=== PATIENT | female | born 1945 | race Caucasian/White ===

== ENCOUNTER 2019-05-29 03:12 | Observation (INO) ==
--- NOTE | 2019-05-29 03:33 | Emergency Department Note ---
Disposition Clinical Impression: Dyspnea Qualifiers: Dyspnea type: dyspnea on exertion Qualified Code(s): R06.09 - Other forms of dyspnea Arrhythmia Qualifiers: Arrhythmia type: other cardiac arrhythmia Qualified Code(s): I49.8 - Other specified cardiac arrhythmias Pulmonary edema Qualifiers: Chronicity: acute Qualified Code(s): J81.0 - Acute pulmonary edema Disposition: Admitted As Inpatient Condition: Fair Referrals: Ibrahima Bhatti MD [Primary Care Provider] - Forms: ED Satisfaction Letter Time of Disposition: 05:50 General Adult HPI - General Chief complaint: ED Shortness of Breath/Dyspnea Stated complaint: shortness of breath Time Seen by Provider: 05/29/19 03:26 Source: patient, family Limitations: no limitations Nursing Notes Reviewed: Yes Vital Signs Reviewed: Yes - History of Present Illness HPI Narrative: An 74-year-old female history of hypertension, hyperlipidemia, A. fib on warfarin who presents with palpitations. Palpitations started at 00 30 this morning when she rolled over in bed and felt her heart "flutter". Patient st ates that she recently had a couple steroid injections for arthritis of her knees and shoulder. Patient states that she has felt jittery, anxious, " worked up"recently and she is felt slightly short of breath with exertion. She states that she recently has been needing the bathroom more often and has been getting lightheaded. Today she has no chest pain, abdominal pain, . Pain Scale: 0 - Related Data Home Medications Medication Instructions Recorded Confirmed Atenolol [Tenormin] 25 mg PO BID 06/15/18 06/15/18 Calcium Carbonate/Vitamin D3 1 tab PO BID 06/15/18 06/15/18 [Calcium 600-Vit D3 800 Tablet] Levothyroxine Sodium 112 mcg PO DAILY 06/15/18 06/15/18 Lovastatin 40 mg PO HS 06/15/18 06/15/18 Omeprazole [PriLOSEC] 20 mg PO DAILY 06/15/18 06/15/18 Potassium Chloride 20 meq PO BID 06/15/18 06/15/18 Warfarin [Coumadin] 1.5 mg PO SUMOWETHFRSA 06/15/18 06/15/18 amLODIPine [Norvasc] 5 mg PO DAILY 06/15/18 06/15/18 Allergies Allergy/AdvReac Type Severity Reaction Status Date / Time indomethacin [From Indocin] AdvReac See Verified 05/29/19 03:18 Comments lisinopril AdvReac Cough Verified 05/29/19 03:18 All systems ED: reviewed and negative except as stated. Review of Systems: As Per HPI Constitutional: Denies: fever, chills, weakness, weight change Eyes: Denies: vision change Cardiovascular: Reports: palpitations, dyspnea on exertion. Denies: chest pain, orthopnea, edema, syncope Respiratory: Reports: dyspnea. Denies: cough, wheezes, hemoptysis Gastrointestinal: Denies: abdominal pain, nausea, vomiting, diarrhea, constipation Genitourinary: Reports: frequency. Denies: urgency, dysuria Musculoskeletal: Denies: back pain Neurological: Denies: headache, weakness Psychiatric: Denies: anxiety, depression Past Medical History - Past Medical History Attestation: Yes The following information was validated with the patient. Medical history: Reports: arthritis, atrial fibrillation, cancer, GERD, hyperlipidemia, hypertension, RA, thyroid disease, other Surgical history: Reports: breast surgery, cataract, hysterectomy, other Psychiatric history: Reports: depression - Social History Smoking Status: Never smoker Smokeless Tobacco Status: No Alcohol use: Reports: none Drug use: Reports: none Physical Exam - General Limitations: no limitations General appearance: alert - Head Head exam: atraumatic, normocephalic, normal inspection - Eye Eye exam: Present: normal appearance, PERRL, EOMI. Absent: scleral icterus, conjunctival injection - ENT ENT exam: normal exam, normal oropharynx, mucous membranes moist - Chest Chest inspection: Present: normal inspection, symmetric chest wall rise - Respiratory Respiratory exam: Present: normal lung sounds bilaterally. Absent: respiratory distress, wheezes, stridor - Cardiovascular Cardiovascular exam: Present: regular rate, irregular rhythm - Abdominal Exam Abdominal exam: Present: Non-Tender. Absent: tenderness, distention, guarding - Neurological Exam Neurological exam: Present: alert, oriented X3 - Psychiatric Psychiatric exam: Present: normal affect, normal mood Course Course Narrative: Patient presented with palpitations and dyspnea started early this morning. This found on EKG that she was in a supraventricular bigeminy pattern. Labs with cardiac workup were ordered. Patient has no chest pain. - Reevaluation(s) Reevaluation #1: Discussed the patient the findings and laboratory results as well as her EKG findings. Patient and her family agreed that hospital admission would be good for her. She agrees to admission. Patient is comfortable and only occasionally feels the palpitations. On repeat EKG EKG and found that she is no longer in a total supraventricular bigeminy but in and out. - Consultations Consultation #1: Spoke with Dr. Collier the hospitalist. Informed him of the patient. He requested we order a magnesium level on the patient as well as give him 40 mEq of potassium. I will do this. He agrees to admit the patient. Time: 05:29 Vital Signs Temperature 97.5 F L 05/29/19 03:14 Pulse Rate 70 05/29/19 03:14 Respiratory Rate 18 05/29/19 03:14 Blood Pressure 194/143 05/29/19 03:14 O2 Sat by Pulse Oximetry 99 05/29/19 03:14 Temperature 97.5 F L 05/29/19 03:14 Pulse Rate 62 05/29/19 05:07 Respiratory Rate 16 05/29/19 05:07 Blood Pressure 148/73 05/29/19 05:07 O2 Sat by Pulse Oximetry 98 05/29/19 05:07 Oxygen Delivery Oxygen Delivery Room Air Medical Decision Making - MDM Narrative Medical decision making narrative: Patient presented after an episode of palpitations while in bed. Patient has had a recent course of steroids and admits to being jittery. Patient admits to being dyspneic after the palpitations started. She continues to have palpitations. EKG showed a supraventricular bigeminal pattern. Labs are otherwise unremarkable. Chest x-ray did show possible early pulmonary edema versus poor inspiration. On reevaluation so this patient's symptoms are resolving however she was still having intermittent palpitations as well as verified an EKG was again which showed intermittent bigeminy is suppose earlier which was continuous bigeminal pattern. Patient will be admitted for observation and cardiac workup. - Medical Records Medical records reviewed: Yes I reviewed the patient's medical records. - Lab Data Lab results reviewed: Yes I reviewed the patient's lab results. Result diagrams: 05/29/19 03:38 05/29/19 03:38 Lab Results 05/29/19 05/29/19 05/29/19 Range/Units 03:38 03:38 03:38 WBC 10.8 (4.3-11.1) K/mcL RBC 3.82 (3.82-4.97) M/mcL Hgb 11.7 (11.5-15.4) g/dL Hct 38.2 (35.3-44.9) % MCV 100.0 (83.0-100.0) fL MCH 30.6 (28.0-33.3) pg MCHC 30.6 L (31.6-35.5) g/dL RDW 15.4 H (11.5-14.5) % Plt Count 344 (140-400) K/mcL MPV 9.4 (9.4-12.4) fL Immature Gran % 0.4 (0-4) % Seg Neutrophils % 52.0 % Lymphocytes % 40.9 % Monocytes % 6.1 % Eosinophils % 0.2 % Basophils % 0.4 % Neutrophils # 5.6 (1.6-8.9) K/mcL Lymphocytes # 4.4 (0.6-4.6) K/mcL Monocytes # 0.7 (0.0-1.3) K/mcL Eosinophils # 0.0 (0.0-0.6) K/mcL Basophils # 0.0 (0.0-0.2) K/mcL PT 39.8 H (9.4-12.1) Seconds INR 3.5 APTT 56.7 H (26.0-36.0) Seconds Sodium 140 (136-145) mEq/L Potassium 3.9 (3.5-5.1) mEq/L Chloride 105 (98-107) mEq/L Carbon Dioxide 26 (23-29) mEq/L BUN 24 H (8-23) mg/dL Creatinine 0.86 (0.60-1.20) mg/dL Est GFR ( Amer) > 60 (> 60) Est GFR (Non-Af Amer) > 60 (> 60) BUN/Creatinine Ratio 28 H (6-26) Glucose 115 H (70-105) mg/dL Calculated Osmolality 295 (280-300) Calcium 9.8 (8.6-10.3) mg/dL Troponin I < 0.03 (< 0.04) ng/mL Urine Color (Yellow) Urine Clarity (Clear) Urine pH (5.0-8.0) pH Units Ur Specific [place] (1.010-1.025) Urine Protein (Neg-Trace) mg/dL Urine Glucose (UA) (Normal) mg/dL Urine Ketones (Negative) mg/dL Urine Blood (Negative) Urine Nitrite (Negative) Urine Bilirubin (Negative) Urine Urobilinogen (Normal) mg/dL Ur Leukocyte Esterase (Negative) Urine Microscopic RBC (0-3) per hpf Urine Microscopic WBC (0-3) per hpf Ur Squamous Epith Cells (None-Few) per lpf Urine Bacteria (None-Few) per hpf Hyaline Casts (None-Few) per lpf Ur Culture Indicated? (NO) 05/29/19 Range/Units 04:27 WBC (4.3-11.1) K/mcL RBC (3.82-4.97) M/mcL Hgb (11.5-15.4) g/dL Hct (35.3-44.9) % MCV (83.0-100.0) fL MCH (28.0-33.3) pg MCHC (31.6-35.5) g/dL RDW (11.5-14.5) % Plt Count (140-400) K/mcL MPV (9.4-12.4) fL Immature Gran % (0-4) % Seg Neutrophils % % Lymphocytes % % Monocytes % % Eosinophils % % Basophils % % Neutrophils # (1.6-8.9) K/mcL Lymphocytes # (0.6-4.6) K/mcL Monocytes # (0.0-1.3) K/mcL Eosinophils # (0.0-0.6) K/mcL Basophils # (0.0-0.2) K/mcL PT (9.4-12.1) Seconds INR APTT (26.0-36.0) Seconds Sodium (136-145) mEq/L Potassium (3.5-5.1) mEq/L Chloride (98-107) mEq/L Carbon Dioxide (23-29) mEq/L BUN (8-23) mg/dL Creatinine (0.60-1.20) mg/dL Est GFR ( Amer) (> 60) Est GFR (Non-Af Amer) (> 60) BUN/Creatinine Ratio (6-26) Glucose (70-105) mg/dL Calculated Osmolality (280-300) Calcium (8.6-10.3) mg/dL Troponin I (< 0.04) ng/mL Urine Color Yellow (Yellow) Urine Clarity Clear (Clear) Urine pH 7.0 (5.0-8.0) pH Units Ur Specific [place] 1.012 (1.010-1.025) Urine Protein Negative (Neg-Trace) mg/dL Urine Glucose (UA) Normal (Normal) mg/dL Urine Ketones Negative (Negative) mg/dL Urine Blood Small H (Negative) Urine Nitrite Negative (Negative) Urine Bilirubin Negative (Negative) Urine Urobilinogen Normal (Normal) mg/dL Ur Leukocyte Esterase Negative (Negative) Urine Microscopic RBC 0-3 (0-3) per hpf Urine Microscopic WBC 0-3 (0-3) per hpf Ur Squamous Epith Cells None Seen (None-Few) per lpf Urine Bacteria None Seen (None-Few) per hpf Hyaline Casts None Seen (None-Few) per lpf Ur Culture Indicated? NO (NO) - Radiology Data Radiology results reviewed: Yes I reviewed the patient's radiology results. Chest X-Ray 05/29/19 03:47 IMPRESSION: Early edema versus magnification of pulmonary vasculature due to shallow inspiration. D/ / Abebe Jordan / Abebe Jordan Interpreting Provider: Abebe Jordan - EKG Data EKG #1 EKG attestation: Yes I reviewed and interpreted this EKG. EKG results narrative: EKG done at 0 336 reviewed by myself and attending shows an apparent supraven tricular bigeminal rhythm from PACs. Calculated rate of 67, MI 178, QRS 94, QTC 373 but is normal axis. No acute ST changes no acute T-wave changes or signs of ischemia. No signs of hypertrophy. When comparing this EKG and a bigeminal pattern it appears to have acute change when compared with EKG performed on 03/09/2018 showed a sinus rhythm at that time. Overall this is an abnormal EKG. EKG #2 EKG attestation: Yes I reviewed and interpreted this EKG. EKG results narrative: EKG done at 0506 reviewed by myself and attending shows a sinus rhythm with intermittent supraventricular bigeminy. Rate of 61, MI 183, QRS 100, QTC 43. Normal axis. No acute ST changes no acute T-wave changes noted signs of ischemia. EKG has changes when compared with one 0 336 has partial resolution of her bigeminal pattern however they are still in intermittent bigeminy.
[2019-05-29 04:07] LABS: Basophils % 0.4 %; Eosinophils % 0.2 %; Hematocrit 38.2 % (35.3-44.9); Hemoglobin 11.7 g/dL (11.5-15.4); Immature Granulocytes % 0.4 % (0-4); Lymphocytes # 4.4 K/mcL (0.6-4.6); Lymphocytes % 40.9 %; Mean Corpuscular HGB Conc 30.6 g/dL (31.6-35.5); Mean Corpuscular Hemoglobin 30.6 pg (28.0-33.3); Mean Platelet Volume 9.4 fL (9.4-12.4); Monocytes # 0.7 K/mcL (0.0-1.3); Monocytes % 6.1 %; Neutrophils # 5.6 K/mcL (1.6-8.9); Platelet Count 344 K/mcL (140-400); Red Blood Count 3.82 M/mcL (3.82-4.97); Red Cell Distribution Width 15.4 % (11.5-14.5); White Blood Count 10.8 K/mcL (4.3-11.1)
[2019-05-29 04:16] LABS: INR 3.5; Prothrombin Time 39.8 Seconds (9.4-12.1)
[2019-05-29 04:18] LABS: Activated Partial Thrombo Time 56.7 Seconds (26.0-36.0)
[2019-05-29 04:21] LABS: BUN/Creatinine Ratio 28 (6-26); Blood Urea Nitrogen 24 mg/dL (8-23); Calcium 9.8 mg/dL (8.6-10.3); Carbon Dioxide 26 mEq/L (23-29); Chloride 105 mEq/L (98-107); Glucose 115 mg/dL (70-105); Osmolality,Calculated 295 (280-300); Potassium 3.9 mEq/L (3.5-5.1); Sodium 140 mEq/L (136-145); eGFR For African Americans > 60 (> 60); eGFR For Non-African Americans > 60 (> 60)
[2019-05-29 04:22] LABS: Troponin I < 0.03 ng/mL (< 0.04)
[2019-05-29 04:36] LABS: Bilirubin,Urine Negative (Negative); Blood,Urine Small (Negative); Clarity,Urine Clear (Clear); Color,Urine Yellow (Yellow); Glucose,Urine (UA) Normal (Normal); Ketones,Urine Negative (Negative); Leukocyte Esterase,Urine Negative (Negative); Nitrite,Urine Negative (Negative); Protein,Urine Negative (Neg-Trace); Specific Gravity,Urine 1.012 (1.010-1.025); Urobilinogen,Urine Normal (Normal)
[2019-05-29 04:39] LABS: Bacteria,Urine None Seen per hpf (None-Few); Hyaline Casts,Urine None Seen per lpf (None-Few); RBC,Urine 0-3 per hpf (0-3); Squamous Epithelial Cell,Urine None Seen per lpf (None-Few); WBC,Urine 0-3 per hpf (0-3)
[2019-05-29] MEDS ORDERED: Furosemide 40 MG/4 ML VIAL IVP ONE (05:10)
--- NOTE | 2019-05-29 05:10 | Emergency Department Note ---
Disposition Clinical Impression: Palpitations, Supraventricular bigeminy Dyspnea Qualifiers: Dyspnea type: unspecified Qualified Code(s): R06.00 - Dyspnea, unspecified Pulmonary edema Qualifiers: Chronicity: acute Qualified Code(s): J81.0 - Acute pulmonary edema Disposition: Admitted As Inpatient Condition: Fair Forms: ED Satisfaction Letter Time of Disposition: 05:49 General Adult HPI - General Chief complaint: ED Shortness of Breath/Dyspnea Stated complaint: shortness of breath Time Seen by Provider: 05/29/19 03:26 Source: patient, family Limitations: no limitations - History of Present Illness Pain Scale: 0 - Related Data Home Medications Medication Instructions Recorded Confirmed Atenolol [Tenormin] 25 mg PO BID 06/15/18 06/15/18 Calcium Carbonate/Vitamin D3 1 tab PO BID 06/15/18 06/15/18 [Calcium 600-Vit D3 800 Tablet] Levothyroxine Sodium 112 mcg PO DAILY 06/15/18 06/15/18 Lovastatin 40 mg PO HS 06/15/18 06/15/18 Omeprazole [PriLOSEC] 20 mg PO DAILY 06/15/18 06/15/18 Potassium Chloride 20 meq PO BID 06/15/18 06/15/18 Warfarin [Coumadin] 1.5 mg PO SUMOWETHFRSA 06/15/18 06/15/18 amLODIPine [Norvasc] 5 mg PO DAILY 06/15/18 06/15/18 Allergies Allergy/AdvReac Type Severity Reaction Status Date / Time indomethacin [From Indocin] AdvReac See Verified 05/29/19 03:18 Comments lisinopril AdvReac Cough Verified 05/29/19 03:18 Constitutional: Denies: fever, chills, weakness, weight change Eyes: Denies: vision change Cardiovascular: Reports: palpitations, dyspnea on exertion. Denies: chest pain, orthopnea, edema, syncope Respiratory: Reports: dyspnea. Denies: cough, wheezes, hemoptysis Gastrointestinal: Denies: abdominal pain, nausea, vomiting, diarrhea, constipation Genitourinary: Reports: frequency. Denies: urgency, dysuria Musculoskeletal: Denies: back pain Neurological: Denies: headache, weakness Psychiatric: Denies: anxiety, depression Past Medical History - Past Medical History Medical history: Reports: arthritis, atrial fibrillation, cancer, GERD, hyperli pidemia, hypertension, RA, thyroid disease, other Surgical history: Reports: breast surgery, cataract, hysterectomy, other Psychiatric history: Reports: depression - Social History Smoking Status: Never smoker Smokeless Tobacco Status: No Alcohol use: Reports: none Drug use: Reports: none Physical Exam - General Limitations: no limitations General appearance: alert Course Vital Signs Temperature 97.5 F L 05/29/19 03:14 Pulse Rate 70 05/29/19 03:14 Respiratory Rate 18 05/29/19 03:14 Blood Pressure 194/143 05/29/19 03:14 O2 Sat by Pulse Oximetry 99 05/29/19 03:14 Temperature 97.5 F L 05/29/19 03:14 Pulse Rate 72 05/29/19 04:24 Respiratory Rate 16 05/29/19 04:24 Blood Pressure 152/70 05/29/19 04:24 O2 Sat by Pulse Oximetry 98 05/29/19 04:24 Oxygen Delivery Oxygen Delivery Room Air Medical Decision Making - Lab Data Result diagrams: 05/29/19 03:38 05/29/19 03:38 Lab Results 05/29/19 05/29/19 05/29/19 Range/Units 03:38 03:38 03:38 WBC 10.8 (4.3-11.1) K/mcL RBC 3.82 (3.82-4.97) M/mcL Hgb 11.7 (11.5-15.4) g/dL Hct 38.2 (35.3-44.9) % MCV 100.0 (83.0-100.0) fL MCH 30.6 (28.0-33.3) pg MCHC 30.6 L (31.6-35.5) g/dL RDW 15.4 H (11.5-14.5) % Plt Count 344 (140-400) K/mcL MPV 9.4 (9.4-12.4) fL Immature Gran % 0.4 (0-4) % Seg Neutrophils % 52.0 % Lymphocytes % 40.9 % Monocytes % 6.1 % Eosinophils % 0.2 % Basophils % 0.4 % Neutrophils # 5.6 (1.6-8.9) K/mcL Lymphocytes # 4.4 (0.6-4.6) K/mcL Monocytes # 0.7 (0.0-1.3) K/mcL Eosinophils # 0.0 (0.0-0.6) K/mcL Basophils # 0.0 (0.0-0.2) K/mcL PT 39.8 H (9.4-12.1) Seconds INR 3.5 APTT 56.7 H (26.0-36.0) Seconds Sodium 140 (136-145) mEq/L Potassium 3.9 (3.5-5.1) mEq/L Chloride 105 (98-107) mEq/L Carbon Dioxide 26 (23-29) mEq/L BUN 24 H (8-23) mg/dL Creatinine 0.86 (0.60-1.20) mg/dL Est GFR ( Amer) > 60 (> 60) Est GFR (Non-Af Amer) > 60 (> 60) BUN/Creatinine Ratio 28 H (6-26) Glucose 115 H (70-105) mg/dL Calculated Osmolality 295 (280-300) Calcium 9.8 (8.6-10.3) mg/dL Troponin I < 0.03 (< 0.04) ng/mL Attestation Statement - Attestation Attestation: I examined this patient and my medical decision-making was reviewed with the Resident Physician. I agree with the documented findings, disposition and treatment plan as described except to the extent set forth below. Patient to the ED with a chief complaint of palpitations, dyspnea, anxiety. Patient a similar be related to a Decadron injection she had on . Dyspnea on exertion. Palpitations which she is not symptomatic from at this time. On exam she is no distress. Lungs are clear. Heart is irregular. Plan. Patient's EKG was reviewed with the resident. Appears to be in bigeminy with PACs. Cardiac workup. EKG reviewed with the resident. PACs in a pattern of bigeminy. Troponin is negative. Likely some mild pulmonary edema on chest x-ray. We will give her some Lasix. Patient will be admitted. Repeat EKG showed that the bige fiorella was now less frequent. Admitted to medicine. Chest X-Ray 05/29/19 03:47 IMPRESSION: Early edema versus magnification of pulmonary vasculature due to shallow inspiration. D/ / Abebe Jordan / Abebe Jordan Interpreting Provider: Abebe Jordan
[2019-05-29] MEDS ORDERED: Naloxone 0.4 MG/ML INJ IVP PRN (09:35)
[2019-05-29 09:59] LABS: Troponin I 0.04 ng/mL (< 0.04)
[2019-05-29 10:11] LABS: Thyroid Stimulating Hormone 13.151 mcIU/mL (0.340-5.600)
--- NOTE | 2019-05-29 11:47 | Internal Med History&Physical ---
Date of Encounter: 05/29/19 Time of Encounter: 08:45 Internal Medicine - H&P: HPI Chief complaint: Palpitations Admitted From: Emergency Dept Plans for Post Hospital Care: Home History of present illness: Ms. Awad is a 74 year old female with a past medical history significant for hypertension, hyperlipidemia, atrial fibrillation, presented to the hospital with palpitations. According to the patient, he started to get palpitations around midnight when she went to sleep. She was not able to sleep because of these palpitations. Of note, patient has history of atrial fibrillation. She also explained that she was having dizziness, she was more jittery and anxious because of this palpitations. Patient mentioned that she had recently corticosteroid injection in both her knees, most recent one was on . She thinks that he was more hyper after the corticosteroid injections. Patient mentioned that she has been taking her medications regularly. Denies chest pain, shortness of breath at this point. Still feels the palpitations and funny feeling in the chest. Patient is otherwise hemodynamically stable. EKG was obtained which showed supraventricular bigeminy pattern. Repeat EKG still had bigeminy but less load. Chest x-ray was concerning for early edema. LAb workup showed supratherapeutic INR. Initial troponin was normal, next troponin was 0.04. No other gross abnormalities. Patient is being admitted for further management. Past Med Surg Social Fam HX - Past Medical History Medical history: arthritis, atrial fibrillation, cancer, GERD, hyperlipidemia, hypertension, RA, thyroid disease, other Additional medical history: breast and uterine cancer, PVD, anemia Psychiatric history: depression - Past Surgical History Surgical History: breast surgery, cataract, hysterectomy, other Additional surgical history: FILTER LEFT LEG. knee replacement. right lymph node removal - Social History Smoking Status: Never smoker Smokeless Tobacco Status: No Alcohol use: none Drug use: none - Family History Mother Family Member Ethnicity: Non- Living Status: Hx Family Cardiac Disorders: Yes (CHF) Hx Family Respiratory Disorders: No Hx Family Cancer: Yes (uterine) Hx Family GI Disorders: No Hx Family Endocrine Disorder: Yes (kidney disease) Hx Family Neuromuscular Disorders: Yes Hx Family Neurologic Disorders: No Hx Family HEENT Disorders: No Hx Family Autoimmune Disorders: No Father Hx Family Respiratory Disorders: Yes (asthma) Internal Medicine - H&P: Meds Atenolol [Tenormin] 25 mg PO BID 06/15/18 [History] Calcium Carbonate/Vitamin D3 [Calcium 600-Vit D3 800 Tablet] 1 tab PO BID 06/15/18 [History] Levothyroxine Sodium 112 mcg PO DAILY 06/15/18 [History] Lovastatin 40 mg PO HS 06/15/18 [History] Omeprazole [PriLOSEC] 20 mg PO DAILY 06/15/18 [History] Potassium Chloride 20 meq PO BID 06/15/18 [History] Warfarin [Coumadin] 1.5 mg PO SUMOWETHFRSA 06/15/18 [History] amLODIPine [Norvasc] 5 mg PO DAILY 06/15/18 [History] Allergy/AdvReac Type Severity Reaction Status Date / Time indomethacin [From Indocin] AdvReac See Verified 05/29/19 03:18 Comments lisinopril AdvReac Cough Verified 05/29/19 03:18 All Systems PM: A 10-system review of systems was performed and is negative for pertinent findings except as documented above in the HPI. Review of systems: General: Negative for fever, chills, rigors. HEENT: Negative for swelling, discharge from nose, discharge from ears. EYES: Negative for any discharge from the eyes. Respiratory: Negative for shortness of breath, orthopnea, exertional dyspnea. Cardiovascular: See HPI Gastrintestical: Negative for diarrhea, constipation, blood in stools. Genitourinary: Negative for dysuria, hematuria, nocturia, increased frequency of urine. Hematological: Negative for blood loss, negative for active cancer. Neurological: Negative for headache, dizziness, blurry vision, loss os power and sensations. Endocrinology: Negative for constipation, polyuria, polydipsia. Psychiatric: Negative for anxiety or depression. - Constitutional Vitals: Temp Pulse Resp BP Pulse Ox 98.4 F 56 16 138/73 99 05/29/19 08:05 05/29/19 08:05 05/29/19 08:05 05/29/19 08:05 05/29/19 08:05 Exam: General: Alert and oriented, no physical distress, able to follow commands. HEENT: No thyromegaly, no lymphadenopathy, no discharge. Eyes: No discharge. Respiratory: Normal vesicular breathing, no added sounds, breathing equal in both sides. CVS: Normal heart sounds, no murmurs, no edema. REgualrly irregular rhtyhm,does not seem to be in A.fib. Extremities: No peripheral edema, peripheral pulses intact. Lymph nodes: No lymphadenopathy Gastrointestinal: Soft, nontender abdomen, normal abdominal sounds. No distention noted. Genitourinary: No paravertebral tenderness. Neurological: Alert and oriented. No focal deficits. Cranial nerves II-XII intact. Internal Med - H&P Results - Labs CBC & Chem 7: 05/29/19 03:38 05/29/19 03:38 Labs: Short CBC 05/29/19 Range/Units 03:38 WBC 10.8 (4.3-11.1) K/mcL Hgb 11.7 (11.5-15.4) g/dL Hct 38.2 (35.3-44.9) % Plt Count 344 (140-400) K/mcL Neutrophils # 5.6 (1.6-8.9) K/mcL BMP 05/29/19 03:38 Sodium 140 Potassium 3.9 Chloride 105 Carbon Dioxide 26 BUN 24 H Creatinine 0.86 Glucose 115 H Calcium 9.8 Cardiac Enzymes 05/29/19 05/29/19 Range/Units 03:38 09:11 Troponin I < 0.03 0.04 H* (< 0.04) ng/mL Urine 05/29/19 Range/Units 04:27 Urine Color Yellow (Yellow) Urine Clarity Clear (Clear) Urine pH 7.0 (5.0-8.0) pH Units Ur Specific [place] 1.012 (1.010-1.025) Urine Protein Negative (Neg-Trace) mg/dL Urine Glucose (UA) Normal (Normal) mg/dL - Impressions ITS Impressions Chest X-Ray 05/29/19 03:47 IMPRESSION: Early edema versus magnification of pulmonary vasculature due to shallow inspiration. D/ / Abebe Jordan / Abebe Jordan Interpreting Provider: Abebe Jordan - Assessment and Plan (1) Supraventricular bigeminy Current Visit: Yes Status: Acute Assessment and plan: -Diagnosed on EKG -Etiolgoy unlcear -Currently the load has decreased -ISchemia needs to be ruled out -Trend troponins -Cardiolgoy consult for the recommendatons for the ischemic workup -Keep hte pt NPO -Cardaic monitor -Echo ordered (2) Atrial fibrillation Current Visit: No Status: Chronic Assessment and plan: -Currently not in A.fib -Heart rate in 80s -On beta katie for the rate control which will be continued -On coumadin for the AC, wull resume, dose adjustment as per cardiolgoy as the levels are supratherapeutic Qualifiers: Atrial fibrillation type: paroxysmal Qualified Code(s): I48.0 - Paroxysmal atrial fibrillation (3) Palpitations Current Visit: Yes Status: Acute Assessment and plan: Related to the bigeminy -0Pt is feeling better now (4) Supratherapeutic INR Current Visit: Yes Status: Acute Assessment and plan: -INR of 3.5 -Further dosing of coumadin as per pharmacy (5) NSTEMI (non-ST elevated myocardial infarction) Current Visit: Yes Status: Acute Assessment and plan: -Tropnin of 0.04 on repeat -Likely type II -Will trend tropoins -Ordered echo -Ischemic workup as per cardiolgy (6) Pulmonary edema Current Visit: Yes Status: Acute Assessment and plan: -Was found to have fluid overload picture on x ray -Was also given lasix 40 mg IV ocne in the ED -Currentlt seems ti be euvolemic -No crackles on chest ausculation -Hold off on lasix Qualifiers: Chronicity: acute Qualified Code(s): J81.0 - Acute pulmonary edema (7) Hypothyroidism Current Visit: No Status: Chronic Assessment and plan: -TSH of 12.5 -Conssidering the age and hx of A. fib, levels are not very considerate -Resule home dose of levothyroxine Qualifiers: Hypothyroidism type: unspecified Qualified Code(s): E03.9 - Hypothyroidism, unspecified - Time Spent With Patient Total time spent is greater than 50% in coordination of care (as documented) at patient's floor/unit and/or counseling patient:
[2019-05-29] MEDS ORDERED: amLODIPine 5 MG TABLET PO SCH (12:00)
--- NOTE | 2019-05-29 12:13 | Cardiology Consult Note ---
Date of Encounter: 05/29/19 Time of Encounter: 12:12 Assessment and Plan (1) Troponin level elevated Current Visit: Yes Status: Acute likely 2/2 mild chf exacerbation (which is likely diastolic but echo is pending). no evidence of ischemia or urgent need for invasive evaluation (echo pending) (2) Palpitations Current Visit: Yes Status: Acute Atrial bigeminy, in itself does not require ischemic workup unlike ventricular bigeminy which might. Additionally [facility] 2014 minimal disease. Troponin better explained by CHF exacerbation (3) Atrial fibrillation Current Visit: No Status: Chronic Continue coumadin and rate control Qualifiers: Atrial fibrillation type: paroxysmal Qualified Code(s): I48.0 - Paroxysmal atrial fibrillation (4) Acute CHF Current Visit: Yes Status: Acute Awaiting echo to ruleout systolic. Mild exacerbation, could be discharged today on diuretic w fu in clinic as long as no severe systolic derangement on echo. Likely explains mild troponin Na restriction advised and daily morning postvoid weights with instructions on weight changes. Qualifiers: Heart failure type: unspecified Qualified Code(s): I50.9 - Heart failure, unspecified Discussion w patient/family: The assessment and plan as outlined above was discussed with the patient and/or family members who expressed understanding and agreement. All questions were answered. Thank you for involving us in the care of your patient. Please call with any questions. History of Present Illness Consult date: 05/29/19 Consult reason: atrial bigeminy Chief complaint: chest pain History of present illness: Ms. Awad is a 74 year old female minimal CAD by [facility] 2014, hypertension, hyperlipidemia, atrial fibrillation on rate control w BB and coumadin for AC. According to the patient, she started to get palpitations around midnight when she went to sleep. She was not able to sleep because of these palpitations. Of note, patient has history of atrial fibrillation. She also explained that she was having dizziness, she was more jittery and anxious because of this palpitations. Patient mentioned that she had recently corticosteroid injection in both her knees, most recent one was on . She thinks that he was more hyper after the corticosteroid injections. Patient mentioned that she has been taking her medications regularly. Denies chest pain, shortness of breath at this point. Still feels the palpitations. She also notes dyspnea on exertion recently, orthopnea yesterday, and intermittent edema. EKG was obtained which showed supraventricular bigeminy pattern LAb workup showed supratherapeutic INR. Initial troponin was normal, next troponin was 0.04. No other gross abnormalities. Past Med Surg Social Fam HX - Past Medical History Medical history: arthritis, atrial fibrillation, cancer, GERD, hyperlipidemia, hypertension, RA, thyroid disease, other Additional medical history: breast and uterine cancer, PVD, anemia Psychiatric history: depression - Past Surgical History Surgical History: breast surgery, cataract, hysterectomy, other Additional surgical history: FILTER LEFT LEG. knee replacement. right lymph node removal - Social History Smoking Status: Never smoker Smokeless Tobacco Status: No Alcohol use: none Drug use: none - Family History Mother Family Member Ethnicity: Non- Living Status: Hx Family Cardiac Disorders: Yes (CHF) Hx Family Respiratory Disorders: No Hx Family Cancer: Yes (uterine) Hx Family GI Disorders: No Hx Family Endocrine Disorder: Yes (kidney disease) Hx Family Neuromuscular Disorders: Yes Hx Family Neurologic Disorders: No Hx Family HEENT Disorders: No Hx Family Autoimmune Disorders: No Father Hx Family Respiratory Disorders: Yes (asthma) Medications and Allergies Atenolol [Tenormin] 25 mg PO BID 06/15/18 [History] Calcium Carbonate/Vitamin D3 [Calcium 600-Vit D3 800 Tablet] 1 tab PO BID 06/15/18 [History] Levothyroxine Sodium 112 mcg PO DAILY 06/15/18 [History] Lovastatin 40 mg PO HS 06/15/18 [History] Omeprazole [PriLOSEC] 20 mg PO DAILY 06/15/18 [History] Potassium Chloride 20 meq PO BID 06/15/18 [History] Warfarin [Coumadin] 1.5 mg PO SUMOWETHFRSA 06/15/18 [History] amLODIPine [Norvasc] 5 mg PO DAILY 06/15/18 [History] Allergy/AdvReac Type Severity Reaction Status Date / Time indomethacin [From Indocin] AdvReac See Verified 05/29/19 03:18 Comments lisinopril AdvReac Cough Verified 05/29/19 03:18 All Systems Review: The remainder of the systems were reviewed and are negative - Constitutional Constitutional: no chills, no fever(s) - EENT Eyes: no blurred vision, no loss of vision Nose, mouth and throat: no bleeding gums, no dysphagia - Cardiovascular Cardiovascular: dyspnea on exertion, orthopnea, palpitations, no chest pain at rest, no chest pain with exertion, no dyspnea at rest - Respiratory Respiratory: no hemoptysis, no wheezing - Gastrointestinal Gastrointestinal: no hematemesis, no hematochezia - Genitourinary Genitourinary: no hematuria, no nocturia - Musculoskeletal Musculoskeletal: no arthralgias, no myalgias - Neurological Neurological: no syncope, no tingling - Psychiatric Psychiatric: no hallucinations, no panic attacks Physical Examination Vital Signs, Last 4 Hours Temp Pulse Resp BP Pulse Ox 05/29/19 11:51 97.7 F 53 16 150/82 95 General: Conversant HEENT: Atraumatic Neck: No JVD Cardiac: Reg Rate and Rhythm Lungs: Other (bibasilar crackles) Neuro: Alert and responsive Abdomen: Soft Skin: No rashes noted on visualized skin Musculoskeletal: No Chest Wall Tenderness Extremities: Other (trace edema) Results 05/29/19 03:38 05/29/19 03:38 Lab Results 05/29/19 05/29/19 05/29/19 03:38 03:38 03:38 WBC 10.8 Hgb 11.7 Hct 38.2 Plt Count 344 INR 3.5 APTT 56.7 H Sodium 140 Potassium 3.9 Chloride 105 Carbon Dioxide 26 BUN 24 H Creatinine 0.86 Glucose 115 H Calcium 9.8 Magnesium 2.0 Troponin I < 0.03 B-Natriuretic Peptide TSH 05/29/19 05/29/19 03:38 09:11 WBC Hgb Hct Plt Count INR APTT Sodium Potassium Chloride Carbon Dioxide BUN Creatinine Glucose Calcium Magnesium Troponin I 0.04 H* B-Natriuretic Peptide 210 H TSH 13.151 H - EKG Interpretation EKG results cardiology: personally reviewed (atrial bigeminy), sinus rhythm, no diagnostic ischemia Consult Discharge Plan - Plan Referrals: Ibrahima Bhatti MD [Primary Care Provider] -
[2019-05-29] MEDS ORDERED: Warfarin perPT PO PRN (18:00)
[2019-05-30] MEDS ORDERED: Acetaminophen 325 MG TABLET PO PRN (08:07)
[2019-05-30] MEDS ORDERED: Furosemide 20 MG TABLET PO SCH (09:00)
[2019-05-30] MEDS ORDERED: amLODIPine 5 MG TABLET PO SCH (09:00)
[2019-05-30 10:28] LABS: White Blood Count 8.7 K/mcL (4.3-11.1)
[2019-05-30 10:29] LABS: Basophils % 0.5 %; Eosinophils # 0.1 K/mcL (0.0-0.6); Eosinophils % 0.6 %; Hematocrit 35.4 % (35.3-44.9); Hemoglobin 11.2 g/dL (11.5-15.4); Immature Granulocytes % 0.1 % (0-4); Lymphocytes # 2.5 K/mcL (0.6-4.6); Lymphocytes % 28.7 %; Mean Corpuscular HGB Conc 31.6 g/dL (31.6-35.5); Mean Corpuscular Hemoglobin 30.9 pg (28.0-33.3); Mean Corpuscular Volume 97.8 fL (83.0-100.0); Mean Platelet Volume 9.1 fL (9.4-12.4); Monocytes # 0.8 K/mcL (0.0-1.3); Monocytes % 8.7 %; Neutrophils # 5.4 K/mcL (1.6-8.9); Platelet Count 285 K/mcL (140-400); Red Blood Count 3.62 M/mcL (3.82-4.97); Red Cell Distribution Width 15.3 % (11.5-14.5); Segmented Neutrophils % 61.4 %
[2019-05-30 10:42] LABS: INR 3.9
[2019-05-30 10:48] LABS: BUN/Creatinine Ratio 26 (6-26); Blood Urea Nitrogen 25 mg/dL (8-23); Calcium 9.1 mg/dL (8.6-10.3); Carbon Dioxide 25 mEq/L (23-29); Chloride 108 mEq/L (98-107); Glucose 114 mg/dL (70-105); Magnesium 1.8 mg/dL (1.6-2.6); Osmolality,Calculated 279 (280-300); Potassium 3.7 mEq/L (3.5-5.1); Sodium 132 mEq/L (136-145); eGFR For African Americans > 60 (> 60); eGFR For Non-African Americans 56 (> 60)
[2019-05-30 10:49] LABS: Prothrombin Time 43.9 Seconds (9.4-12.1)
--- NOTE | 2019-05-30 10:51 | Event Note ---
Date of Encounter: 05/30/19 Time of Encounter: 10:51 - Cardiology Event Note Awaiting TTE. Discussed with , if no significant derrangement, no further cardiology recommendations.
--- NOTE | 2019-05-30 11:47 | Electrocardiograph Report ---
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
--- NOTE | 2019-05-30 11:48 | Electrocardiograph Report ---
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
[2019-05-30 12:15] VITALS: BP 150/78
--- NOTE | 2019-05-30 14:23 | Discharge Summary ---
- NOTES TO OUTPATIENT PROVIDER Notes to Outpatient Provider: Presented with the palpitations, found to laina jurado. Was evaluated by the cardiolgoy, got the echo, showed normal EF with no wall motion abnormalities. Is fine today. INR elevated to 3.9, we will hold for 2 days, give the script for friday morning, follow up on that. Sodium is 132 today for unclear reasons, will repeat levels for friday. Date of Encounter: 05/30/19 Time of Encounter: 10:00 - Discharge Diagnosis (1) Supraventricular bigeminy Priority: Primary Status: Acute (2) Atrial fibrillation Priority: Secondary Status: Chronic Qualifiers: Atrial fibrillation type: paroxysmal Qualified Code(s): I48.0 - Paroxysmal atrial fibrillation (3) Palpitations Priority: Secondary Status: Acute (4) Supratherapeutic INR Priority: Secondary Status: Acute (5) NSTEMI (non-ST elevated myocardial infarction) Priority: Secondary Status: Acute (6) Pulmonary edema Priority: Secondary Status: Acute Qualifiers: Chronicity: acute Qualified Code(s): J81.0 - Acute pulmonary edema (7) Hypothyroidism Priority: Secondary Status: Chronic Qualifiers: Hypothyroidism type: unspecified Qualified Code(s): E03.9 - Hypothyroidism, unspecified Hospital course: Ms. Awad is a 74 year old female with a past medical history significant for CAD, hyperlipidemia, hypertension, atrial fibrillation, currently on Coumadin, presented to the hospital with a palpitations. Patient got steroid injection in the knee a few days back and following that he was feeling palpitations. At the time of the presentation, patient was found to have supple ventricular bigeminy on the EKG. Repeat EKG showed the bigeminy again but with decreased rate. Patient was admitted for further management. Her x-ray also showed pulmonary edema. Cardiology was consulted. They recommended echocardiography but no other ischemic workup. Echocardiography was done today which showed normal ejection fraction, no systolic dysfunction, no wall motion abnormalities. Patient is feeling much better today. Denies chest pain, palpitations, shortness of breath. Discussed with the patient that she does not require any further workup at this point. She will be given Lasix 20 mg daily because of her pulmonary edema. Patient's sodium was 132 today, etiology is unclear, unlikely to be related to Lasix. Instructed the patient will repeat BMP on Friday. Patient was found to have supratherapeutic INR of 3.5 at the time of presentation, Coumadin was held yesterday, INR today 3.9. Instructed the patient to not take Coumadin for next 2 days Coumadin. INR on Friday and follow up with the provider who monitor INR levels for her. Pt being dischrged in stable condition - Time Spent with Patient Total time spent providing and/or coordinating discharge services: 35 minutes - Discharge Medications Prescriptions: New Furosemide [Lasix] 20 mg PO DAILY #30 tablet Continued amLODIPine [Norvasc] 5 mg PO DAILY Atenolol [Tenormin] 25 mg PO BID Calcium Carbonate/Vitamin D3 [Calcium 600-Vit D3 800 Tablet] 1 tab PO BID Levothyroxine Sodium 112 mcg PO DAILY Lovastatin 40 mg PO HS Omeprazole [PriLOSEC] 20 mg PO DAILY Potassium Chloride 20 meq PO BID Warfarin Sodium 3 mg PO Warfarin [Coumadin] 1.5 mg PO SUMOWETHFRSA #0 Home Medications: Atenolol [Tenormin] 25 mg PO BID 06/15/18 [History] Calcium Carbonate/Vitamin D3 [Calcium 600-Vit D3 800 Tablet] 1 tab PO BID 06/15/18 [History] Levothyroxine Sodium 112 mcg PO DAILY 06/15/18 [History] Lovastatin 40 mg PO HS 06/15/18 [History] Omeprazole [PriLOSEC] 20 mg PO DAILY 06/15/18 [History] Potassium Chloride 20 meq PO BID 06/15/18 [History] amLODIPine [Norvasc] 5 mg PO DAILY 06/15/18 [History] Furosemide [Lasix] 20 mg PO DAILY #30 tablet 05/30/19 [Rx] Warfarin Sodium 3 mg PO TUFR 05/30/19 [History] Warfarin [Coumadin] 1.5 mg PO SUMOWETHFRSA #0 05/30/19 [Rx] Allergies/Adverse Reactions: Allergy/AdvReac Type Severity Reaction Status Date / Time indomethacin [From Indocin] AdvReac See Verified 05/30/19 11:58 Comments lisinopril AdvReac Cough Verified 05/30/19 11:58 Date of admission: 05/29/19 05:52 Primary care physician: Ibrahima Bhatti MD Consults: 05/29/19 09:49 Consult to Cardiology [CONS] Routine Comment: Consulting Provider: Cardiology Evelia Reason for Consult: New bigeminy, hx of atrial fibrillation Call Completed: Yes - Constitutional Vitals: Temp Pulse Resp BP Pulse Ox 98.4 F 64 17 150/78 95 05/30/19 12:11 05/30/19 12:11 05/30/19 12:11 05/30/19 12:11 05/30/19 12:11 Exam: General: Alert and oriented, no physical distress, able to follow commands. Respiratory: Normal vesicular breathing, no added sounds, breathing equal in both sides. CVS: Normal heart sounds, no murmurs, no edema. REgualrly irregular rhtyhm,does not seem to be in A.fib. Extremities: No peripheral edema, peripheral pulses intact. Lymph nodes: No lymphadenopathy Gastrointestinal: Soft, nontender abdomen, normal abdominal sounds. No distention noted. Genitourinary: No paravertebral tenderness. Neurological: Alert and oriented. No focal deficits. Cranial nerves II-XII intact. - Patient Status Disposition: Home, Self-Care Condition: Good Functional capacity at discharge: independent ambulation Overall status at discharge: patient is progressing back to baseline - Discharge Instructions Instructions: Palpitations (DC), Fluid Restriction (DC) Follow Up With: Ibrahima Bhatti MD [Primary Care Provider] - (Pt advised to call to Friday to schedule follow up appointment.) - Diet and Activity Activity: increase activity as tolerated Diet: low salt diet (DO not take warfarin tonight and tomorrow, get INR lab work doen on Friday, and follow up with the provider regarding instructions to start warfarin.)
== END 2019-05-30 15:11 | disposition home or self-care (01) ==
LOC: 2ANU 03:12 → EMEROOARM 03:12 → SUATTDRO 05:52 → 2ANU 06:07
PROVIDERS: ADMIT Pediatrics; ATTEND Internal Medicine